=== PATIENT | male | born 1995 | race Caucasian/White ===

== ENCOUNTER 2024-12-07 11:26 | Emergency (ER) | payer OTHER ==
[~2024-12-07] VITALS: Ht 182.9 cm; Wt 83.9 kg
[2024-12-07 11:35] VITALS: TEMP 98
[2024-12-07 14:15] VITALS: PULSE 69; RESP 18; O2SAT 100
== END 2024-12-07 14:18 | disposition home or self-care (01) ==
LOC: ER 11:35
DX: S82.62XA Displaced fracture of lateral malleolus of left fibula, initial encounter for closed fracture (principal); X50.1XXA Overexertion from prolonged static or awkward postures, initial encounter; Y93.01 Activity, walking, marching and hiking; Y92.89 Other specified places as the place of occurrence of the external cause; F17.210 Nicotine dependence, cigarettes, uncomplicated
CPT/HCPCS: 99283